=== PATIENT | female | born 1990 | race Caucasian/White ===

== ENCOUNTER 2021-12-30 16:04 | Emergency (ER) | payer MEDICAID ==
[~2021-12-30] VITALS: Ht 162.6 cm; Wt 78.0 kg
[2021-12-30 16:12] VITALS: BP 120/87
[2021-12-30] MEDS ORDERED: ACETAMINOPHEN 325MG TABLET PO STA (17:19)
[2021-12-30] MEDS ORDERED: DIPHENHYDRAMINE 50MG/ML VIAL IV ONE (17:30)
[2021-12-30] MEDS ORDERED: SODIUM CHLORIDE 0.9% 1,000 ML IV ONE (17:30)
[2021-12-30] MEDS ORDERED: METOCLOPRAMIDE HCL 10MG/2ML VIAL IV ONE (17:30)
[2021-12-30 19:23] LABS: BASOPHILS % 0.9 % (0.0-2.0); EOSINOPHILS % 1.6 % (0.0-5.0); HEMATOCRIT. 42.9 % (36.0-48.0); HEMOGLOBIN. 14.5 g/dL (12.0-16.0); LYMPHOCYTES % 21.7 % (20.0-50.0); MEAN CORPUSCULAR HEMOGLOBIN 29.5 pg (28.0-32.0); MEAN CORPUSCULAR VOLUME 87.5 fL (81.0-99.0); MEAN PLATELET VOLUME 9.4 fl (7.4-10.4); MONOCYTES % 7.2 % (2.0-8.0); NEUTROPHILS % 68.6 % (40.0-76.0); PLATELET 287 x1000/uL (130-400); RED CELL DISTRIBUTION WIDTH 12.9 % (11.6-14.6)
[2021-12-30 19:29] LABS: CHLORIDE 109 mEq/L (98-107)
[2021-12-30 19:33] LABS: ETHANOL BLOOD < 10 mg/dL
[2021-12-30 19:45] LABS: HCG SCREEN NEGATIVE
[2021-12-30] MEDS ORDERED: ACETAMINOPHEN 325MG TABLET PO SCH (22:15)
[2021-12-30] MEDS ORDERED: METOCLOPRAMIDE HCL 10MG/2ML VIAL IV SCH (22:15)
[2021-12-30] MEDS ORDERED: DIPHENHYDRAMINE 50MG/ML VIAL IV SCH (22:15)
[2021-12-30 22:16] LABS: CLARITY URINE CLEAR (CLEAR); COLOR URINE YELLOW (YELLOW); KETONES URINE 1+ (NEGATIVE); LEUKOCYTE ESTERASE URINE NEGATIVE (NEGATIVE); NITRITE URINE NEGATIVE (NEGATIVE); OCCULT BLOOD URINE 2+ (NEGATIVE); PROTEIN URINE NEGATIVE (NEGATIVE); SPECIFIC GRAVITY URINE 1.017 (1.005-1.030)
[2021-12-30 22:31] LABS: *AMPHETAMINES SCREEN URINE NEGATIVE (NEGATIVE); *BARBITURATES SCREEN URINE NEGATIVE (NEGATIVE); *BENZODIAZEPINES SCREEN URINE NEGATIVE (NEGATIVE); *COCAINE SCREEN URINE NEGATIVE (NEGATIVE); METHADONE URINE SCREEN NEGATIVE (NEGATIVE)
[2021-12-30 22:32] LABS: CANNABINOID URINE SCREEN NEGATIVE (NEGATIVE); OPIATES URINE SCREEN NEGATIVE (NEGATIVE); PHENCYCLIDINE URINE SCREEN NEGATIVE (NEGATIVE)
[2021-12-30] MEDS ORDERED: LORAZEPAM 1MG TABLET PO ONE (23:00)
[2021-12-31] MEDS ORDERED: LORA-249 MT (00:34)
== END 2021-12-31 01:09 | disposition home or self-care (01) ==
LOC: ER 16:04
DX: R07.89 Other chest pain (principal); R51.9 Headache, unspecified; R42 Dizziness and giddiness; F41.9 Anxiety disorder, unspecified; Z88.0 Allergy status to penicillin
CPT/HCPCS: 36415; 71045; 80053; 80305; 80320; 81003; 83690; 84703; 85025; 93005; 96361; 96374; 99285; J1200; J2765; J7030; G0480